=== PATIENT | female | born 1945 | race Caucasian/White ===

== ENCOUNTER 2019-06-13 14:56 | Emergency (ER) | payer MEDICARE, OTHER ==
[2019-06-13 15:18] VITALS: BP 118/63
[2019-06-13] MEDS ORDERED: Tetan/Diph/Pertus SYR(Tdap)* 0.5 ML SYR(BOOSTRIX) use SYR IM ONE (15:23)
--- NOTE | 2019-06-13 15:23 | UC ---
Bite Injury/Animal HPI - HPI Summary HPI Summary: 74 yo female presents with cat bite to right forearm. She tells me that yesterday there was a band playing music across the street from her and her cat became scared and frantic - bit pt in the right forearm. Today pt has noticed redness, increased pain, and swelling to the area. Her cat is UTD on immunizations. Pt is unsure the date of her last tetanus, but states she does not want this today due to fears that it will interfere with her chronic fatigue syndrome. Denies fever or chills - History of Current Complaint Chief Complaint: UCBiteInjury Stated Complaint: CAT BITE Time Seen by Provider: 06/13/19 15:22 Hx Obtained From: Patient Severity Currently: Mild Severity Initially: Mild Pain Intensity: 4 Pain Scale Used: 0-10 Numeric Type of Bite: Animal Has Animal Been Immunized?: Yes Character: Puncture - Allergies/Home Medications Allergies/Adverse Reactions: Allergies Allergy/AdvReac Type Severity Reaction Status Date / Time acromycin Allergy Mild See Comment Uncoded 06/13/19 15:19 PMH/Surg Hx/FS Hx/Imm Hx Endocrine History: Hypothyroidism Psychological History: Anxiety - Surgical History Surgical History: Yes Surgery Procedure, Year, and Place: BREAST LUMP REMOVED 15 YRS AGO RT BREAST - Family History Known Family History: Positive: Non-Contributory - Social History Occupation: Retired Lives: With Family Alcohol Use: None Substance Use Type: Prescribed Smoking Status (MU): Never Smoked Tobacco Review of Systems All Other Systems Reviewed And Are Negative: No Constitutional: Positive: Negative Skin: Positive: Other - Cat bite right forearm Respiratory: Positive: Negative Cardiovascular: Positive: Negative Neurovascular: Positive: Negative Neurological: Positive: Negative Psychological: Positive: Negative Physical Exam - Summary Physical Exam Summary: GENERAL: NAD. WDWN. No pain distress. SKIN: RIGHT FOREARM: 2mm puncture wound with 1.5cm area of surrounding mild erythema and edema with slight TTP. No drainage, streaking, or bleeding. NECK: Supple. Nontender. No lymphadenopathy. CHEST: No accessory muscle use. Breathing comfortably and in no distress. CV: Pulses intact. Cap refill <2seconds NEURO: Alert. PSYCH: Age appropriate behavior. Triage Information Reviewed: Yes Vital Signs: Initial Vital Signs Temp 97.8 F 06/13/19 15:11 Pulse 68 06/13/19 15:11 Resp 16 06/13/19 15:11 BP 118/63 06/13/19 15:11 Pulse Ox 99 06/13/19 15:11 Vital Signs Reviewed: Yes Bite Injury Course/Dx - Course Course Of Treatment: Cat bite right forearm. Wound cleansed and dressed with telfa. Will place her on augmentin - Differential Dx/Diagnosis Provider Diagnosis: Cat bite of forearm Discharge ED - Sign-Out/Discharge Documenting (check all that apply): Patient Departure All imaging exams completed and their final reports reviewed: No Studies - Discharge Plan Condition: Stable Disposition: HOME Prescriptions: Amoxicillin/Clavulanate TAB* [Augmentin TAB 875*] 875 mg PO BID #14 tab Patient Education Materials: Animal Bite (ED) Referrals: Joseph Man MD [Primary Care Provider] - Additional Instructions: If you develop a fever, shortness of breath, chest pain, new or worsening symptoms - please call your PCP or go to the ED immediately. - Billing Disposition and Condition Condition: STABLE Disposition: Home
== END 2019-06-13 15:37 | disposition home or self-care (01) ==
LOC: UCEAST 14:56
DX: S51.851A Open bite of right forearm, initial encounter (principal); W55.01XA Bitten by cat, initial encounter; Y92.019 Unspecified place in single-family (private) house as the place of occurrence of the external cause; E03.9 Hypothyroidism, unspecified; F41.9 Anxiety disorder, unspecified
CPT/HCPCS: 99202; G0463

== ENCOUNTER 2023-05-28 11:30 | Observation (INO) ==
[~2023-05-28 11:30] MED LIST: Buffered Lidocaine 1% SYRIN 1 ml INTRADERM ONE; Lactated Ringers 1000 ml BAG 1,000 ML IV SCH; Morphine 4 MG/ML VIAL (1 ml) IV PRN; Naloxone 0.4 mg VIAL 0.4 mg/ml 1 ml VIAL IV PRN; Prochlorperazine 5 mg/ml 2 ml VIAL (10 mg) IV PRN; fentaNYL 100 mcg/2 ml 50 MCG/ML VIAL IV PRN
[2023-05-28] MEDS ORDERED: Lidocaine 2% PF 5 ML VIAL ONE (12:39)
[2023-05-28] MEDS ORDERED: Midazolam 2 mg/2 ml VIAL 1 mg/ml 2 ml VIAL (2 mg) ONE (12:39)
[2023-05-28] MEDS ORDERED: fentaNYL 100 mcg/2 ml 50 MCG/ML VIAL ONE ×2 (12:39→18:22)
[2023-05-28 13:06] LABS: Rapid COVID-19 Molecular Undetected (Undetected)
[2023-05-28] MEDS ORDERED: ceFAZolin 2 GM in NS PREMIX 2 GM/100 ML BAG IVPB ONE (13:35)
[2023-05-28] MEDS ORDERED: Dexamethasone IV 4 MG/ML VIAL 1 ml VIAL ONE (15:31)
[2023-05-28] MEDS ORDERED: Ondansetron 4 mg VIAL 2 MG/ML 2 ml VIAL ONE (15:31)
[2023-05-28] MEDS ORDERED: Lactulose 30 ml UDC PO PRN (16:14)
[2023-05-28] MEDS ORDERED: Magnesium Hydroxide LIQ 30 ML UDC PO PRN (16:14)
[2023-05-28] MEDS ORDERED: Ondansetron 4 mg VIAL 2 MG/ML 2 ml VIAL IV PRN (16:14)
[2023-05-28] MEDS ORDERED: Ondansetron ODT 4 mg TAB 4 MG TAB PO PRN (16:14)
[2023-05-28] MEDS ORDERED: Morphine 2 MG/ML SYRINGE IV PRN (16:25)
[2023-05-28] MEDS ORDERED: Propofol 10 MG/ML 20 ML BTL ONE (16:40)
[2023-05-28] MEDS ORDERED: Acetaminophen IV 1 GM/100ML 1,000 MG/100 ML BAG IV ONE (16:59)
[2023-05-28] MEDS ORDERED: Lactated Ringers 1000 ml BAG 1,000 ML IV SCH (17:00)
[2023-05-28] MEDS ORDERED: CMCS: Doxepin 10 mg CAP (NF) PO PRN (18:55)
[2023-05-28] MEDS: Lactated Ringers 1000 ml BAG 1,000 ML IV SCH (21:46)
[2023-05-28] MEDS: Magnesium Hydroxide LIQ 30 ML UDC PO SCH (23:15)
[2023-05-28] MEDS: ceFAZolin 1 GM ADVAN 1 GM in NS 0.9% 50 ML 50 ML IVPB SCH (23:35)
[2023-05-29] MEDS: Lactated Ringers 1000 ml BAG 1,000 ML IV SCH (05:49)
[2023-05-29 06:31] LABS: Hematocrit 26.4 % (35-45); Hemoglobin 9.8 g/dL (11.5-14.3); Platelet Count 244 10^3/uL (150-450)
[2023-05-29 06:49] LABS: Calcium 8.1 mg/dL (8.6-10.3); Creatinine, Serum 0.51 mg/dL (0.51-0.95); Magnesium 2.1 mg/dL (1.9-2.7); Potassium 4.2 mmol/L (3.5-5.0); eGFR CKD-EPI 94.9 (>60)
[2023-05-29] MEDS: ceFAZolin 1 GM ADVAN 1 GM in NS 0.9% 50 ML 50 ML IVPB SCH (07:48)
[2023-05-29] MEDS: Magnesium Hydroxide LIQ 30 ML UDC PO SCH (08:10)
[2023-05-29] MEDS ORDERED: Vitamin THERAPEUTIC TAB PO SCH (09:00)
[2023-05-29 10:08] VITALS: BP 112/52
== END 2023-05-29 13:45 | disposition home or self-care (01) ==
LOC: SSU 11:30 → OR 11:30
PROVIDERS: ADMIT Orthopaedic Surgery Adult Reconstructive Orthopaedic Surgery; ATTEND Orthopaedic Surgery Adult Reconstructive Orthopaedic Surgery

== ENCOUNTER 2023-08-23 07:43 | Inpatient (IN) ==
[2023-08-23 07:59] LABS: ABS Eosinophils 0.1 10^3/uL (0.0-0.5); ABS Lymphocytes 1.6 10^3/uL (1.0-4.8); ABS Monocytes 0.5 10^3/uL (0.0-0.9); ABS Neutrophils 5.8 10^3/uL (1.5-7.6); Eosinophil % 0.9 %; Hematocrit 36.3 % (35-45); Hemoglobin 12.8 g/dL (11.5-14.3); Lymphocyte % 19.9 %; Mean Corpuscular Hemoglobin 34.1 pg (27-33); Mean Corpuscular Hgb Conc 35.3 g/dL (31-36); Mean Corpuscular Volume 96.6 fL (80-97); Mean Platelet Volume 6.1 fL (7.5-11.2); Platelet Count 288 10^3/uL (150-450); Red Blood Count 3.76 10^6/uL (3.63-4.92); Red Cell Distribution Width 12.8 % (12-17)
[2023-08-23] MEDS ORDERED: Iodixanol (CONTRAST) 320 MG/ML 100 ML SDV IV ONE (07:59)
[2023-08-23 08:17] LABS: Albumin 4.5 g/dL (3.2-5.2); Albumin/Globulin Ratio 1.7 (1-3); Calcium 9.7 mg/dL (8.6-10.3); Creatinine, Serum 0.58 mg/dL (0.51-0.95); Direct Bilirubin 0.1 mg/dL (0.03-0.18); Globulin 2.7 g/dL (2-4); HDL Cholesterol 45.2 mg/dL; Indirect Bilirubin 0.3 mg/dL (0.3-1.0); Potassium 4.1 mmol/L (3.5-5.0); Total Bilirubin 0.4 mg/dL (0.2-1.0); Total Protein 7.2 g/dL (6.4-8.9)
[2023-08-23 08:18] LABS: Activated Partial Thrombo Time 22.8 seconds (26.0-38.0); INR 1.06 (0.83-1.13)
[2023-08-23 09:15] LABS: Urine Appearance Clear; Urine Bilirubin Negative (Negative); Urine Blood Negative (Negative); Urine Color Yellow; Urine Glucose Negative (Negative); Urine Ketones Negative (Negative); Urine Nitrite Negative (Negative); Urine Protein Negative (Negative); Urine Specific Gravity 1.034 (1.002-1.030); Urine Urobilinogen Negative (Negative)
[2023-08-23] MEDS: Heparin 5000 UNITS/ML 1 mL VIAL SUBCUT SCH ×2 (13:42→20:19)
[2023-08-24] MEDS: Heparin 5000 UNITS/ML 1 mL VIAL SUBCUT SCH ×3 (06:52→22:14)
[2023-08-24] MEDS ORDERED: NF:Linaclotide 290 mcg CAP (NF) PO SCH ×2 (09:00→13:54)
[2023-08-24] MEDS ORDERED: CMCS:Doxepin 10 mg CAP (NF) PO PRN (14:32)
[2023-08-25] MEDS: Heparin 5000 UNITS/ML 1 mL VIAL SUBCUT SCH (06:36)
[2023-08-25 21:46] VITALS: BP 121/58
== END 2023-08-25 13:13 | DRG 65 ==
LOC: ED 07:43 → EDHOLD 07:43 → SUATTDRO 09:37 → MEDTELE 16:47
PROVIDERS: ADMIT Internal Medicine; ATTEND Student in an Organized Health Care Education/Training Program

== ENCOUNTER 2023-08-25 11:39 | Inpatient (IN) ==
[2023-08-25] MEDS: Heparin 5000 UNITS/ML 1 mL VIAL SUBCUT SCH (21:24)
[2023-08-25] MEDS: Doxepin 10 mg CAP (NF) PO PRN (22:11)
[2023-08-26] MEDS: Heparin 5000 UNITS/ML 1 mL VIAL SUBCUT SCH ×3 (06:08→21:03)
[2023-08-26 07:18] LABS: ABS Eosinophils 0.2 10^3/uL (0.0-0.5); ABS Lymphocytes 1.8 10^3/uL (1.0-4.8); ABS Monocytes 0.5 10^3/uL (0.0-0.9); ABS Neutrophils 2.8 10^3/uL (1.5-7.6); Eosinophil % 4.4 %; Hematocrit 35.4 % (35-45); Hemoglobin 12.6 g/dL (11.5-14.3); Lymphocyte % 33.9 %; Mean Corpuscular Hemoglobin 33.9 pg (27-33); Mean Corpuscular Hgb Conc 35.6 g/dL (31-36); Mean Corpuscular Volume 95.3 fL (80-97); Mean Platelet Volume 6.2 fL (7.5-11.2); Nucleated Red Blood Cells % 0.1 %/100WBC (0.0-0.8); Platelet Count 288 10^3/uL (150-450); Red Blood Count 3.71 10^6/uL (3.63-4.92); Red Cell Distribution Width 12.5 % (12-17); White Blood Count 5.4 10^3/uL (3.8-11.8)
[2023-08-26 08:03] LABS: Albumin/Globulin Ratio 1.7 (1-3); Calcium 9.4 mg/dL (8.6-10.3); Creatinine, Serum 0.52 mg/dL (0.51-0.95); Globulin 2.4 g/dL (2-4); Potassium 3.7 mmol/L (3.5-5.0); Total Bilirubin 0.4 mg/dL (0.2-1.0); Total Protein 6.4 g/dL (6.4-8.9); eGFR CKD-EPI 94.5 (>60)
[2023-08-26] MEDS: Aspirin EC 81 mg TAB.EC (enteric coated) PO SCH (08:57)
[2023-08-26] MEDS: PTO:Linaclotide 290 mcg CAP (NF) PO SCH (08:58)
[2023-08-26] MEDS: Doxepin 10 mg CAP (NF) PO PRN (22:00)
[2023-08-27] MEDS: Heparin 5000 UNITS/ML 1 mL VIAL SUBCUT SCH ×3 (06:02→22:24)
[2023-08-27] MEDS: PTO:Linaclotide 290 mcg CAP (NF) PO SCH (08:31)
[2023-08-27] MEDS: Aspirin EC 81 mg TAB.EC (enteric coated) PO SCH (08:32)
[2023-08-27] MEDS: Magnesium Hydroxide LIQ 30 ML UDC PO PRN (16:34)
[2023-08-27] MEDS ORDERED: Sodium Phosphate ADULT ENEMA 133 ML BTL PR PRN (19:52)
[2023-08-27] MEDS: Senna TAB 8.6 mg TAB PO PRN (20:09)
[2023-08-27] MEDS ORDERED: Lactulose 30 ml UDC PO PRN (22:01)
[2023-08-28] MEDS: PTO:Linaclotide 290 mcg CAP (NF) PO SCH (06:15)
[2023-08-28] MEDS: Heparin 5000 UNITS/ML 1 mL VIAL SUBCUT SCH ×3 (06:18→21:44)
[2023-08-28] MEDS: Aspirin EC 81 mg TAB.EC (enteric coated) PO SCH (10:59)
[2023-08-28] MEDS: Polyethylene Glycol 3350 17 GM PACKET PO SCH (11:00)
[2023-08-28] MEDS: Magnesium Hydroxide LIQ 30 ML UDC PO PRN (16:42)
[2023-08-28] MEDS: Hemorrhoidal OINT 1 TUBE PR PRN ×2 (17:20→21:53)
[2023-08-29] MEDS: Hemorrhoidal OINT 1 TUBE PR PRN ×2 (05:59→21:48)
[2023-08-29] MEDS: PTO:Linaclotide 290 mcg CAP (NF) PO SCH (06:15)
[2023-08-29] MEDS: Heparin 5000 UNITS/ML 1 mL VIAL SUBCUT SCH ×3 (06:15→20:57)
[2023-08-29] MEDS: Polyethylene Glycol 3350 17 GM PACKET PO SCH (09:46)
[2023-08-29] MEDS: Aspirin EC 81 mg TAB.EC (enteric coated) PO SCH (09:47)
[2023-08-30] MEDS: Heparin 5000 UNITS/ML 1 mL VIAL SUBCUT SCH ×3 (05:34→21:08)
[2023-08-30] MEDS: PTO:Linaclotide 290 mcg CAP (NF) PO SCH (05:37)
[2023-08-30] MEDS: Aspirin EC 81 mg TAB.EC (enteric coated) PO SCH (10:03)
[2023-08-30] MEDS: Polyethylene Glycol 3350 17 GM PACKET PO SCH (10:04)
[2023-08-30] MEDS: Hemorrhoidal OINT 1 TUBE PR PRN ×3 (10:06→21:32)
[2023-08-31] MEDS: Heparin 5000 UNITS/ML 1 mL VIAL SUBCUT SCH ×3 (06:25→21:43)
[2023-08-31] MEDS: Hemorrhoidal OINT 1 TUBE PR PRN ×2 (07:27→17:45)
[2023-08-31] MEDS: Polyethylene Glycol 3350 17 GM PACKET PO SCH (08:27)
[2023-08-31] MEDS: Aspirin EC 81 mg TAB.EC (enteric coated) PO SCH (08:28)
[2023-08-31] MEDS: PTO:Linaclotide 290 mcg CAP (NF) PO SCH (08:28)
[2023-09-01] MEDS: PTO:Linaclotide 290 mcg CAP (NF) PO SCH (06:10)
[2023-09-01] MEDS: Heparin 5000 UNITS/ML 1 mL VIAL SUBCUT SCH ×3 (06:11→21:29)
[2023-09-01] MEDS: Aspirin EC 81 mg TAB.EC (enteric coated) PO SCH (08:42)
[2023-09-01] MEDS: Polyethylene Glycol 3350 17 GM PACKET PO SCH (08:42)
[2023-09-01] MEDS: Doxepin 10 mg CAP (NF) PO PRN (20:10)
[2023-09-02] MEDS: PTO:Linaclotide 290 mcg CAP (NF) PO SCH (05:49)
[2023-09-02] MEDS: Heparin 5000 UNITS/ML 1 mL VIAL SUBCUT SCH ×3 (05:51→21:55)
[2023-09-02 07:29] LABS: ABS Eosinophils 0.2 10^3/uL (0.0-0.5); ABS Lymphocytes 1.8 10^3/uL (1.0-4.8); ABS Monocytes 0.6 10^3/uL (0.0-0.9); ABS Neutrophils 2.6 10^3/uL (1.5-7.6); Eosinophil % 4.1 %; Hematocrit 33.3 % (35-45); Hemoglobin 11.8 g/dL (11.5-14.3); Lymphocyte % 33.7 %; Mean Corpuscular Hemoglobin 33.9 pg (27-33); Mean Corpuscular Hgb Conc 35.5 g/dL (31-36); Mean Corpuscular Volume 95.7 fL (80-97); Mean Platelet Volume 6.2 fL (7.5-11.2); Nucleated Red Blood Cells % 0.1 %/100WBC (0.0-0.8); Platelet Count 293 10^3/uL (150-450); Red Blood Count 3.48 10^6/uL (3.63-4.92); Red Cell Distribution Width 12.5 % (12-17); White Blood Count 5.2 10^3/uL (3.8-11.8)
[2023-09-02 07:42] LABS: Albumin 3.8 g/dL (3.2-5.2); Albumin/Globulin Ratio 1.7 (1-3); Calcium 9.5 mg/dL (8.6-10.3); Creatinine, Serum 0.53 mg/dL (0.51-0.95); Globulin 2.3 g/dL (2-4); Total Bilirubin 0.4 mg/dL (0.2-1.0); Total Protein 6.1 g/dL (6.4-8.9)
[2023-09-02] MEDS: Aspirin EC 81 mg TAB.EC (enteric coated) PO SCH (08:32)
[2023-09-02] MEDS: Polyethylene Glycol 3350 17 GM PACKET PO SCH (08:32)
[2023-09-02] MEDS: Hemorrhoidal OINT 1 TUBE PR PRN (18:37)
[2023-09-02] MEDS: Doxepin 10 mg CAP (NF) PO PRN (22:08)
[2023-09-03] MEDS: Heparin 5000 UNITS/ML 1 mL VIAL SUBCUT SCH ×3 (05:50→21:30)
[2023-09-03] MEDS: PTO:Linaclotide 290 mcg CAP (NF) PO SCH (05:50)
[2023-09-03] MEDS: Aspirin EC 81 mg TAB.EC (enteric coated) PO SCH (10:19)
[2023-09-03] MEDS: Polyethylene Glycol 3350 17 GM PACKET PO SCH (10:20)
[2023-09-03] MEDS: Doxepin 10 mg CAP (NF) PO PRN (21:35)
[2023-09-04] MEDS: Heparin 5000 UNITS/ML 1 mL VIAL SUBCUT SCH ×3 (05:58→20:51)
[2023-09-04] MEDS: PTO:Linaclotide 290 mcg CAP (NF) PO SCH (05:58)
[2023-09-04] MEDS: Aspirin EC 81 mg TAB.EC (enteric coated) PO SCH (09:44)
[2023-09-04] MEDS: Polyethylene Glycol 3350 17 GM PACKET PO SCH (09:45)
[2023-09-04] MEDS: Magnesium Hydroxide LIQ 30 ML UDC PO PRN (19:29)
[2023-09-04] MEDS: Senna TAB 8.6 mg TAB PO PRN (20:47)
[2023-09-05] MEDS: Heparin 5000 UNITS/ML 1 mL VIAL SUBCUT SCH ×3 (04:52→21:36)
[2023-09-05] MEDS: PTO:Linaclotide 290 mcg CAP (NF) PO SCH (05:04)
[2023-09-05] MEDS: Aspirin EC 81 mg TAB.EC (enteric coated) PO SCH (08:13)
[2023-09-05] MEDS: Polyethylene Glycol 3350 17 GM PACKET PO SCH (08:14)
[2023-09-05] MEDS: Magnesium Hydroxide LIQ 30 ML UDC PO PRN (19:19)
[2023-09-05] MEDS: Senna TAB 8.6 mg TAB PO PRN (21:34)
[2023-09-05] MEDS: Doxepin 10 mg CAP (NF) PO PRN (22:23)
[2023-09-06] MEDS: Heparin 5000 UNITS/ML 1 mL VIAL SUBCUT SCH ×3 (06:28→21:46)
[2023-09-06] MEDS: PTO:Linaclotide 290 mcg CAP (NF) PO SCH (06:30)
[2023-09-06] MEDS: Polyethylene Glycol 3350 17 GM PACKET PO SCH (08:17)
[2023-09-06] MEDS: Aspirin EC 81 mg TAB.EC (enteric coated) PO SCH (08:17)
[2023-09-06] MEDS: CMCS: Doxepin 10 mg CAP (NF) PO SCH (21:45)
[2023-09-06] MEDS: Senna TAB 8.6 mg TAB PO PRN (21:45)
[2023-09-07] MEDS: Heparin 5000 UNITS/ML 1 mL VIAL SUBCUT SCH ×3 (04:37→21:42)
[2023-09-07] MEDS: PTO:Linaclotide 290 mcg CAP (NF) PO SCH (05:13)
[2023-09-07] MEDS: Polyethylene Glycol 3350 17 GM PACKET PO SCH (09:25)
[2023-09-07] MEDS: Aspirin EC 81 mg TAB.EC (enteric coated) PO SCH (09:25)
[2023-09-07] MEDS: CMCS: Doxepin 10 mg CAP (NF) PO SCH (21:41)
[2023-09-07] MEDS: Senna TAB 8.6 mg TAB PO PRN (21:43)
[2023-09-08] MEDS: PTO:Linaclotide 290 mcg CAP (NF) PO SCH (05:26)
[2023-09-08] MEDS: Heparin 5000 UNITS/ML 1 mL VIAL SUBCUT SCH ×3 (05:26→21:49)
[2023-09-08] MEDS: Aspirin EC 81 mg TAB.EC (enteric coated) PO SCH (09:02)
[2023-09-08] MEDS: Polyethylene Glycol 3350 17 GM PACKET PO SCH (09:02)
[2023-09-08] MEDS: CMCS: Doxepin 10 mg CAP (NF) PO SCH (21:50)
[2023-09-09] MEDS: PTO:Linaclotide 290 mcg CAP (NF) PO SCH (05:43)
[2023-09-09] MEDS: Heparin 5000 UNITS/ML 1 mL VIAL SUBCUT SCH ×3 (05:43→21:36)
[2023-09-09 07:03] LABS: ABS Eosinophils 0.2 10^3/uL (0.0-0.5); ABS Lymphocytes 1.7 10^3/uL (1.0-4.8); ABS Monocytes 0.5 10^3/uL (0.0-0.9); ABS Nucleated RBC 0.01 10^3/ul; Eosinophil % 3.7 %; Hemoglobin 11.5 g/dL (11.5-14.3); Lymphocyte % 38.3 %; Mean Corpuscular Hemoglobin 34.6 pg (27-33); Mean Corpuscular Hgb Conc 35.8 g/dL (31-36); Mean Corpuscular Volume 96.6 fL (80-97); Mean Platelet Volume 6.1 fL (7.5-11.2); Nucleated Red Blood Cells % 0.2 %/100WBC (0.0-0.8); Platelet Count 270 10^3/uL (150-450); Red Blood Count 3.31 10^6/uL (3.63-4.92); Red Cell Distribution Width 12.9 % (12-17); White Blood Count 4.4 10^3/uL (3.8-11.8)
[2023-09-09 07:18] LABS: Albumin 3.8 g/dL (3.2-5.2); Albumin/Globulin Ratio 1.8 (1-3); Calcium 9.3 mg/dL (8.6-10.3); Creatinine, Serum 0.54 mg/dL (0.51-0.95); Globulin 2.1 g/dL (2-4); Potassium 4.1 mmol/L (3.5-5.0); Total Bilirubin 0.4 mg/dL (0.2-1.0); Total Protein 5.9 g/dL (6.4-8.9); eGFR CKD-EPI 93.6 (>60)
[2023-09-09] MEDS: Polyethylene Glycol 3350 17 GM PACKET PO SCH (07:43)
[2023-09-09] MEDS: Aspirin EC 81 mg TAB.EC (enteric coated) PO SCH (07:44)
[2023-09-09] MEDS: CMCS: Doxepin 10 mg CAP (NF) PO SCH (21:34)
[2023-09-10] MEDS: PTO:Linaclotide 290 mcg CAP (NF) PO SCH (05:30)
[2023-09-10] MEDS: Heparin 5000 UNITS/ML 1 mL VIAL SUBCUT SCH ×2 (05:32→15:39)
[2023-09-10] MEDS: Aspirin EC 81 mg TAB.EC (enteric coated) PO SCH (11:23)
[2023-09-10] MEDS: Polyethylene Glycol 3350 17 GM PACKET PO SCH (11:24)
[2023-09-10 15:44] VITALS: BP 133/83
== END 2023-09-10 16:25 | disposition home or self-care (01) | DRG 65 ==
LOC: PMRU 14:46
PROVIDERS: ADMIT Physical Medicine & Rehabilitation; ATTEND Physical Medicine & Rehabilitation